=== PATIENT | female | born 1995 | race African-American/Black ===

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

== ENCOUNTER 2017-01-31 19:07 | Emergency (ER) | payer OTHER ==
[~2017-01-31] VITALS: Ht 165.1 cm; Wt 92.5 kg
[2017-01-31 19:13] VITALS: BP 112/69
[2017-01-31 19:26] LABS: BILIRUBIN NEGATIVE (NEGATIVE); BLOOD NEGATIVE (NEGATIVE); CLARITY SL CLOUDY (CLEAR); COLOR YELLOW (YELLOW); GLUCOSE NEGATIVE (NEGATIVE); KETONE NEGATIVE (NEGATIVE); LEUKO ESTERASE 2+ (NEGATIVE); NITRITE POSITIVE (NEGATIVE); PH 5.5 (5.0-9.0); UROBILINOGEN 0.2 E.U./dl (0.2-1.0)
[2017-01-31 19:32] LABS: BACTERIA 2+; WBC 51-100 wbc/hpf (0-5)
[2017-01-31 19:33] LABS: RBC 0-2 rbc/hpf (0-2)
[2017-01-31] MEDS ORDERED: PRENATAL VITAM1 EAC4 PO (19:36)
[2017-01-31] MEDS ORDERED: MACROBID100 M1 PO (19:36)
== END 2017-01-31 19:42 | disposition home or self-care (01) ==
LOC: ED 19:07
PROVIDERS: Physician Assistant
DX: O23.41 Unspecified infection of urinary tract in pregnancy, first trimester (principal); Z3A.01 Less than 8 weeks gestation of pregnancy

== ENCOUNTER 2017-03-29 19:39 | Emergency (ER) | payer OTHER ==
[~2017-03-29] VITALS: Ht 165.1 cm; Wt 89.8 kg
[~2017-03-29 19:39] MED LIST changes: +PRENATAL VITAM1 EAC4 PO
[2017-03-29 19:42] VITALS: BP 108/62
[2017-03-29 20:09] LABS: BASO % 0.1 % (0.0-1.0); EOS % 0.2 % (1.0-4.0); HEMATOCRIT 35.9 % (37.0-47.0); HEMOGLOBIN 12.5 g/dl (12.0-16.0); LYMPH # 1.6 10*3/uL (1.3-4.4); LYMPH % 19.6 % (27.0-41.0); MEAN CELL VOLUME 86.9 fl (81.0-99.0); MEAN CORPUSCULAR HGB 30.3 pg (27.0-31.0); MEAN CORPUSCULAR HGB CONC 34.8 g/dl (33.0-37.0); MEAN PLATELET VOLUME 10.4 fl (9.6-12.3); MONO # 0.5 10*3/uL (0.1-1.0); MONO % 5.5 % (3.0-9.0); NEUT # 6.2 10*3/uL (2.3-7.9); NEUT % 74.4 % (47.0-73.0); PLATELET COUNT AUTOMATED 225 10*3/uL (130-400); RED BLOOD COUNT 4.13 10*6/uL (4.10-5.10); RED CELL DISTRI WIDTH 13.7 % (0-14.5); WHITE BLOOD COUNT 8.4 10*3/uL (4.8-10.8)
[2017-03-29 20:24] LABS: ALBUMIN 3.4 gm/dl (3.1-4.5); ALKALINE PHOSPHATASE 49 U/L (45-117); BUN 4 mg/dl (7-24); CHLORIDE 107 mmol/L (98-107); CREATININE 0.51 mg/dL (0.55-1.02); LIPASE 136 U/L (73-393); POTASSIUM 3.9 mmol/L (3.5-5.1); SGOT/AST 12 IU/L (3-35); SGPT/ALT 16 U/L (12-78); SODIUM 137 mmol/L (136-145); TOTAL PROTEIN 6.9 gm/dL (6.4-8.2)
[2017-03-29 20:27] LABS: BILIRUBIN NEGATIVE (NEGATIVE); BLOOD NEGATIVE (NEGATIVE); CLARITY SL CLOUDY (CLEAR); COLOR YELLOW (YELLOW); GLUCOSE NEGATIVE (NEGATIVE); KETONE 2+ (NEGATIVE); LEUKO ESTERASE NEGATIVE (NEGATIVE); NITRITE NEGATIVE (NEGATIVE); UROBILINOGEN 0.2 E.U./dl (0.2-1.0)
[2017-03-29 20:32] LABS: BACTERIA 1+
[2017-03-29 20:33] LABS: MUCOUS 2+; RBC 0-2 rbc/hpf (0-2)
== END 2017-03-29 21:53 | disposition home or self-care (01) ==
LOC: ED 19:39
PROVIDERS: Physician Assistant
DX: O99.611 Diseases of the digestive system complicating pregnancy, first trimester (principal); K52.9 Noninfective gastroenteritis and colitis, unspecified; Z3A.13 13 weeks gestation of pregnancy

== ENCOUNTER 2017-04-28 10:42 | Emergency (ER) | payer OTHER ==
[~2017-04-28] VITALS: Ht 165.1 cm; Wt 92.5 kg
[2017-04-28 10:49] VITALS: BP 91/59
[2017-04-28 11:09] LABS: BASO % 0.3 % (0.0-1.0); EOS # 0.1 10*3/uL (0.0-0.4); EOS % 0.7 % (1.0-4.0); HEMATOCRIT 35.5 % (37.0-47.0); HEMOGLOBIN 12.4 g/dl (12.0-16.0); LYMPH # 2.1 10*3/uL (1.3-4.4); MEAN CELL VOLUME 87.7 fl (81.0-99.0); MEAN CORPUSCULAR HGB 30.6 pg (27.0-31.0); MEAN CORPUSCULAR HGB CONC 34.9 g/dl (33.0-37.0); MEAN PLATELET VOLUME 10.7 fl (9.6-12.3); MONO # 0.5 10*3/uL (0.1-1.0); MONO % 6.8 % (3.0-9.0); NEUT # 4.8 10*3/uL (2.3-7.9); NEUT % 63.7 % (47.0-73.0); PLATELET COUNT AUTOMATED 219 10*3/uL (130-400); RED BLOOD COUNT 4.05 10*6/uL (4.10-5.10); RED CELL DISTRI WIDTH 13.2 % (0-14.5); WHITE BLOOD COUNT 7.5 10*3/uL (4.8-10.8)
[2017-04-28 11:24] LABS: ALKALINE PHOSPHATASE 46 U/L (45-117); BUN 4 mg/dl (7-24); CHLORIDE 107 mmol/L (98-107); CREATININE 0.44 mg/dL (0.55-1.02); POTASSIUM 3.9 mmol/L (3.5-5.1); SGOT/AST 8 IU/L (3-35); SGPT/ALT 13 U/L (12-78); SODIUM 138 mmol/L (136-145); TOTAL PROTEIN 6.8 gm/dL (6.4-8.2)
[2017-04-28 11:41] LABS: BILIRUBIN NEGATIVE (NEGATIVE); BLOOD NEGATIVE (NEGATIVE); CLARITY SL CLOUDY (CLEAR); COLOR YELLOW (YELLOW); GLUCOSE NEGATIVE (NEGATIVE); KETONE NEGATIVE (NEGATIVE); LEUKO ESTERASE TRACE (NEGATIVE); NITRITE NEGATIVE (NEGATIVE); SPECIFIC GRAVITY 1.015 (1.005-1.030); UROBILINOGEN 0.2 E.U./dl (0.2-1.0)
[2017-04-28 11:54] LABS: WBC 21-30 wbc/hpf (0-5)
[2017-04-28 11:55] LABS: BACTERIA 1+
[2017-04-28] MEDS ORDERED: DICLEGIS DR 101 EACH PO (12:00)
[2017-04-28] MEDS ORDERED: MACROBID100 M1 PO (12:00)
== END 2017-04-28 12:18 | disposition home or self-care (01) ==
LOC: ED 10:42
PROVIDERS: Nurse Practitioner Family
DX: O23.42 Unspecified infection of urinary tract in pregnancy, second trimester (principal); Z3A.17 17 weeks gestation of pregnancy

== ENCOUNTER 2017-06-26 18:32 | Emergency (ER) | payer OTHER ==
[~2017-06-26] VITALS: Ht 162.5 cm; Wt 88.9 kg
[~2017-06-26 18:32] MED LIST changes: +DICLEGIS DR 101 EACH PO
[2017-06-26] MEDS ORDERED: PRENATAL TABLE1 EACH PO (18:41)
[2017-06-26 20:10] VITALS: BP 107/63
[2017-06-26 20:35] LABS: BILIRUBIN NEGATIVE (NEGATIVE); BLOOD NEGATIVE (NEGATIVE); CLARITY SL CLOUDY (CLEAR); COLOR YELLOW (YELLOW); GLUCOSE NEGATIVE (NEGATIVE); KETONE NEGATIVE (NEGATIVE); LEUKO ESTERASE 1+ (NEGATIVE); NITRITE NEGATIVE (NEGATIVE); PH 6.5 (5.0-9.0); UROBILINOGEN 0.2 E.U./dl (0.2-1.0)
[2017-06-26 20:43] LABS: BACTERIA 3+; EPITHELIAL CELLS 16-20
[2017-06-26] MEDS ORDERED: MACROBID100 M1 PO (20:59)
== END 2017-06-26 21:03 | disposition home or self-care (01) ==
LOC: ED 18:32
PROVIDERS: Emergency Medicine Emergency Medical Services
DX: O9A.212 Injury, poisoning and certain other consequences of external causes complicating pregnancy, second trimester (principal); S70.12XA Contusion of left thigh, initial encounter; O23.42 Unspecified infection of urinary tract in pregnancy, second trimester; Z3A.25 25 weeks gestation of pregnancy; Z79.899 Other long term (current) drug therapy; V49.49XA Driver injured in collision with other motor vehicles in traffic accident, initial encounter; Y93.89 Activity, other specified; Y92.89 Other specified places as the place of occurrence of the external cause; Y99.8 Other external cause status

== ENCOUNTER 2017-07-06 15:25 | Emergency (ER) | payer OTHER ==
[~2017-07-06] VITALS: Ht 162.5 cm; Wt 93.9 kg
[~2017-07-06 15:25] MED LIST changes: +PRENATAL TABLE1 EACH PO
[2017-07-06 16:01] LABS: BASO % 0.3 % (0.0-1.0); EOS # 0.1 10*3/uL (0.0-0.4); EOS % 0.9 % (1.0-4.0); HEMATOCRIT 32.7 % (37.0-47.0); HEMOGLOBIN 11.3 g/dl (12.0-16.0); LYMPH # 1.7 10*3/uL (1.3-4.4); LYMPH % 25.1 % (27.0-41.0); MEAN CELL VOLUME 91.1 fl (81.0-99.0); MEAN CORPUSCULAR HGB 31.5 pg (27.0-31.0); MEAN CORPUSCULAR HGB CONC 34.6 g/dl (33.0-37.0); MEAN PLATELET VOLUME 11.2 fl (9.6-12.3); MONO # 0.7 10*3/uL (0.1-1.0); MONO % 9.9 % (3.0-9.0); NEUT # 4.3 10*3/uL (2.3-7.9); NEUT % 63.1 % (47.0-73.0); PLATELET COUNT AUTOMATED 202 10*3/uL (130-400); RED BLOOD COUNT 3.59 10*6/uL (4.10-5.10); RED CELL DISTRI WIDTH 12.7 % (0-14.5); WHITE BLOOD COUNT 6.8 10*3/uL (4.8-10.8)
[2017-07-06 16:02] LABS: BILIRUBIN NEGATIVE (NEGATIVE); BLOOD TRACE-INTACT (NEGATIVE); CLARITY SL CLOUDY (CLEAR); COLOR YELLOW (YELLOW); GLUCOSE NEGATIVE (NEGATIVE); KETONE TRACE (NEGATIVE); LEUKO ESTERASE NEGATIVE (NEGATIVE); NITRITE NEGATIVE (NEGATIVE); UROBILINOGEN 0.2 E.U./dl (0.2-1.0)
[2017-07-06 16:09] LABS: INTERNATIONAL NORM RATIO 0.9 (2.0-3.5)
[2017-07-06 16:09] LABS: BACTERIA 1+
[2017-07-06 16:11] LABS: EPITHELIAL CELLS 21-30
[2017-07-06 16:15] LABS: ALBUMIN 2.7 gm/dl (3.1-4.5); ALKALINE PHOSPHATASE 59 U/L (45-117); BUN 4 mg/dl (7-24); CHLORIDE 107 mmol/L (98-107); LIPASE 85 U/L (73-393); POTASSIUM 3.8 mmol/L (3.5-5.1); SGOT/AST 8 IU/L (3-35); SGPT/ALT 9 U/L (12-78); SODIUM 137 mmol/L (136-145); TOTAL PROTEIN 6.4 gm/dL (6.4-8.2)
[2017-07-06 17:13] VITALS: BP 110/62
== END 2017-07-06 17:10 | disposition short-term general hospital (02) ==
LOC: ED 15:25
PROVIDERS: Physician Assistant
DX: O26.891 Other specified pregnancy related conditions, first trimester (principal); R10.9 Unspecified abdominal pain; R42 Dizziness and giddiness; R51 Headache; Z79.899 Other long term (current) drug therapy; Z3A.01 Less than 8 weeks gestation of pregnancy

== ENCOUNTER 2017-08-19 16:46 | Emergency (ER) | payer OTHER ==
[~2017-08-19] VITALS: Ht 162.5 cm; Wt 98.0 kg
[2017-08-19 17:47] LABS: BILIRUBIN NEGATIVE (NEGATIVE); BLOOD NEGATIVE (NEGATIVE); CLARITY SL CLOUDY (CLEAR); COLOR YELLOW (YELLOW); GLUCOSE NEGATIVE (NEGATIVE); KETONE TRACE (NEGATIVE); LEUKO ESTERASE TRACE (NEGATIVE); NITRITE POSITIVE (NEGATIVE); SPECIFIC GRAVITY 1.025 (1.005-1.030); UROBILINOGEN 0.2 E.U./dl (0.2-1.0)
[2017-08-19 17:48] VITALS: BP 105/63
[2017-08-19 17:58] LABS: BACTERIA 1+; MUCOUS TRACE; RBC 0-2 rbc/hpf (0-2)
== END 2017-08-19 17:55 | disposition short-term general hospital (02) ==
LOC: ED 16:46
PROVIDERS: Emergency Medicine
DX: O26.893 Other specified pregnancy related conditions, third trimester (principal); R10.9 Unspecified abdominal pain; M54.9 Dorsalgia, unspecified; Z79.899 Other long term (current) drug therapy; Z3A.34 34 weeks gestation of pregnancy

== ENCOUNTER → 2017-09-03 | Outpatient (CLI) | payer OTHER | END | disposition home or self-care (01) | LOC: US 16:55 | DX: N23 Unspecified renal colic (principal) ==

== ENCOUNTER 2017-09-20 17:49 | Emergency (ER) | payer OTHER ==
[~2017-09-20] VITALS: Ht 165.1 cm; Wt 94.8 kg
[2017-09-20 17:49] VITALS: BP 109/64
== END 2017-09-20 18:18 | disposition left against medical advice (07) ==
LOC: ED 17:49
DX: Z34.93 Encounter for supervision of normal pregnancy, unspecified, third trimester (principal); Z79.899 Other long term (current) drug therapy

== ENCOUNTER 2017-09-25 20:20 | Emergency (ER) | payer OTHER ==
[~2017-09-25] VITALS: Wt 94.8 kg
[2017-09-25 20:24] VITALS: BP 91/48
== END 2017-09-25 20:54 | disposition short-term general hospital (02) ==
LOC: ED 20:20
DX: O23.593 Infection of other part of genital tract in pregnancy, third trimester (principal); N89.8 Other specified noninflammatory disorders of vagina; Z3A.38 38 weeks gestation of pregnancy

== ENCOUNTER 2017-10-02 22:25 | Emergency (ER) | payer OTHER ==
[~2017-10-02] VITALS: Ht 165.1 cm; Wt 89.4 kg
--- NOTE | ~2017-10-02 | EKG ---
[place], [place] ELECTROCARDIOGRAM REPORT NAME: DESEAN MANDUJANO UNIT #: [id number] ROOM: DOCTOR: SHAD FISCHER MD BIRTHDATE: [birth year] DOS: 10/02/2017 TIME: 2300 hours. FINDINGS: 1. Normal sinus rhythm with 63 beats per minute. 2. The tracing is normal. 3. No previous tracing is available for comparison. SHAD FISCHER MD CM:EKGRPT:ELECTROCARDIOGRAM REPORT [id number] SHAD FISCHER MD
[2017-10-02 22:59] LABS: ACT PARTIAL THROMBO TIME 26.5 SECONDS (20.8-31.5); INTERNATIONAL NORM RATIO 0.9 (2.0-3.5)
[2017-10-02 23:06] LABS: ALBUMIN 2.5 gm/dl (3.1-4.5); ALKALINE PHOSPHATASE 98 U/L (45-117); BUN 7 mg/dl (7-24); CHLORIDE 110 mmol/L (98-107); CREATININE 0.64 mg/dL (0.55-1.02); SGOT/AST 14 IU/L (3-35); SGPT/ALT 15 U/L (12-78); SODIUM 141 mmol/L (136-145); TOTAL PROTEIN 6.4 gm/dL (6.4-8.2)
[2017-10-02 23:08] LABS: TROPONIN I < 0.015 ng/ml (<0.045)
[2017-10-02 23:09] LABS: BASO % 0.3 % (0.0-1.0); EOS # 0.1 10*3/uL (0.0-0.4); EOS % 1.2 % (1.0-4.0); HEMATOCRIT 30.8 % (37.0-47.0); LYMPH # 1.6 10*3/uL (1.3-4.4); LYMPH % 21.8 % (27.0-41.0); MEAN CORPUSCULAR HGB 28.9 pg (27.0-31.0); MEAN CORPUSCULAR HGB CONC 32.5 g/dl (33.0-37.0); MEAN PLATELET VOLUME 11.3 fl (9.6-12.3); MONO # 0.7 10*3/uL (0.1-1.0); MONO % 8.8 % (3.0-9.0); NEUT # 4.9 10*3/uL (2.3-7.9); NEUT % 66.7 % (47.0-73.0); PLATELET COUNT AUTOMATED 264 10*3/uL (130-400); RED BLOOD COUNT 3.46 10*6/uL (4.10-5.10); RED CELL DISTRI WIDTH 13.1 % (0-14.5); WHITE BLOOD COUNT 7.4 10*3/uL (4.8-10.8)
[2017-10-02 23:23] LABS: BILIRUBIN NEGATIVE (NEGATIVE); BLOOD 3+ (NEGATIVE); CLARITY SL CLOUDY (CLEAR); COLOR YELLOW (YELLOW); GLUCOSE NEGATIVE (NEGATIVE); KETONE NEGATIVE (NEGATIVE); LEUKO ESTERASE 3+ (NEGATIVE); NITRITE NEGATIVE (NEGATIVE); UROBILINOGEN 0.2 E.U./dl (0.2-1.0)
[2017-10-02 23:30] LABS: WBC 41-50 wbc/hpf (0-5)
[2017-10-02 23:31] LABS: BACTERIA 1+; RBC 31-40 rbc/hpf (0-2)
[2017-10-03 00:13] VITALS: BP 124/83
== END 2017-10-03 01:21 | disposition home or self-care (01) ==
LOC: ED 22:25
PROVIDERS: Student in an Organized Health Care Education/Training Program
DX: O90.89 Other complications of the puerperium, not elsewhere classified (principal); R51 Headache; Z79.899 Other long term (current) drug therapy

== ENCOUNTER 2017-10-14 15:47 | Emergency (ER) | payer OTHER ==
[~2017-10-14] VITALS: Ht 165.1 cm; Wt 88.5 kg
[2017-10-14 16:22] LABS: BASO % 0.8 % (0.0-1.0); EOS % 0.8 % (1.0-4.0); HEMATOCRIT 33.7 % (37.0-47.0); HEMOGLOBIN 10.8 g/dl (12.0-16.0); LYMPH # 1.7 10*3/uL (1.3-4.4); LYMPH % 44.3 % (27.0-41.0); MEAN CELL VOLUME 89.4 fl (81.0-99.0); MEAN CORPUSCULAR HGB 28.6 pg (27.0-31.0); MEAN PLATELET VOLUME 10.9 fl (9.6-12.3); MONO # 0.4 10*3/uL (0.1-1.0); MONO % 9.3 % (3.0-9.0); NEUT # 1.7 10*3/uL (2.3-7.9); NEUT % 44.5 % (47.0-73.0); PLATELET COUNT AUTOMATED 256 10*3/uL (130-400); RED BLOOD COUNT 3.77 10*6/uL (4.10-5.10); RED CELL DISTRI WIDTH 13.6 % (0-14.5); WHITE BLOOD COUNT 3.9 10*3/uL (4.8-10.8)
[2017-10-14 16:36] LABS: ALBUMIN 3.2 gm/dl (3.1-4.5); ALKALINE PHOSPHATASE 78 U/L (45-117); BUN 8 mg/dl (7-24); CHLORIDE 109 mmol/L (98-107); CREATININE 0.58 mg/dL (0.55-1.02); POTASSIUM 4.1 mmol/L (3.5-5.1); SGOT/AST 14 IU/L (3-35); SGPT/ALT 22 U/L (12-78); SODIUM 140 mmol/L (136-145); TOTAL PROTEIN 6.5 gm/dL (6.4-8.2)
[2017-10-14] MEDS ORDERED: ZITHROMAX250 MG PO (17:20)
[2017-10-14] MEDS ORDERED: MEDROL DOSEPAK4 MG PO (17:20)
[2017-10-14 17:25] VITALS: BP 107/63
== END 2017-10-14 17:31 | disposition home or self-care (01) ==
LOC: ED 15:47
PROVIDERS: Physician Assistant
DX: J40 Bronchitis, not specified as acute or chronic (principal)

== ENCOUNTER → 2018-03-19 | Outpatient (CLI) | payer OTHER ==
[~2018-03-19] MED LIST changes: +MEDROL DOSEPAK4 MG PO; +ZITHROMAX250 MG PO
== END ==
LOC: US 07:16
DX: K90.49 Malabsorption due to intolerance, not elsewhere classified (principal)

== ENCOUNTER 2018-05-14 16:25 | Emergency (ER) | payer OTHER ==
[~2018-05-14] VITALS: Ht 165.1 cm; Wt 107.0 kg
[2018-05-14 16:33] VITALS: BP 132/72
[2018-05-14] MEDS ORDERED: CEPHALEXIN500 M1 PO (16:36)
== END 2018-05-14 16:45 | disposition home or self-care (01) ==
LOC: ED 16:25
DX: K08.89 Other specified disorders of teeth and supporting structures (principal); L08.9 Local infection of the skin and subcutaneous tissue, unspecified

== ENCOUNTER 2019-01-29 | Emergency (ER) | payer OTHER ==
[~2019-01-29] VITALS: Ht 165.1 cm; Wt 82.6 kg
[~2019-01-29] MED LIST changes: +CEPHALEXIN500 M1 PO
[2019-01-29 00:02] VITALS: BP 120/62
[2019-01-29 00:41] LABS: BILIRUBIN NEGATIVE (NEGATIVE); BLOOD NEGATIVE (NEGATIVE); CLARITY SL CLOUDY (CLEAR); COLOR YELLOW (YELLOW); GLUCOSE NEGATIVE (NEGATIVE); KETONE NEGATIVE (NEGATIVE); LEUKO ESTERASE 1+ (NEGATIVE); NITRITE NEGATIVE (NEGATIVE); SPECIFIC GRAVITY >= 1.030 (1.005-1.030)
[2019-01-29 00:46] LABS: EPITHELIAL CELLS 15-20
[2019-01-29 00:48] LABS: BACTERIA TRACE; RBC 31-40 rbc/hpf (0-2); WBC 41-50 wbc/hpf (0-5)
[2019-01-29] MEDS ORDERED: MACROBID100 M1 PO (00:54)
== END 2019-01-29 01:28 | disposition home or self-care (01) ==
LOC: ED
PROVIDERS: Nurse Practitioner Family
DX: N39.0 Urinary tract infection, site not specified (principal); Z20.2 Contact with and (suspected) exposure to infections with a predominantly sexual mode of transmission; Z79.2 Long term (current) use of antibiotics

== ENCOUNTER 2019-04-14 12:12 | Emergency (ER) | payer OTHER ==
[~2019-04-14] VITALS: Wt 108.4 kg
[2019-04-14 12:13] VITALS: BP 102/39
[2019-04-14 13:03] LABS: BILIRUBIN NEGATIVE (NEGATIVE); BLOOD 1+ (NEGATIVE); CLARITY CLOUDY (CLEAR); COLOR YELLOW (YELLOW); GLUCOSE NEGATIVE (NEGATIVE); KETONE TRACE (NEGATIVE); LEUKO ESTERASE 1+ (NEGATIVE); NITRITE NEGATIVE (NEGATIVE); PH 5.5 (5.0-9.0); SPECIFIC GRAVITY >= 1.030 (1.005-1.030); UROBILINOGEN 0.2 E.U./dl (0.2-1.0)
[2019-04-14 13:22] LABS: BACTERIA 2+; EPITHELIAL CELLS 15-20; MUCOUS 2+; WBC 21-30 wbc/hpf (0-5)
[2019-04-14] MEDS ORDERED: PRENATAL TABLE1 EAC2 PO (13:47)
[2019-04-14] MEDS ORDERED: CEPHALEXIN500 M1 PO (13:47)
== END 2019-04-14 13:58 | disposition home or self-care (01) ==
LOC: ED 12:12
PROVIDERS: Nurse Practitioner Family
DX: O23.91 Unspecified genitourinary tract infection in pregnancy, first trimester (principal); O98.311 Other infections with a predominantly sexual mode of transmission complicating pregnancy, first trimester; A59.9 Trichomoniasis, unspecified; O99.611 Diseases of the digestive system complicating pregnancy, first trimester; A08.4 Viral intestinal infection, unspecified; Z3A.00 Weeks of gestation of pregnancy not specified; Z79.2 Long term (current) use of antibiotics

== ENCOUNTER 2019-05-15 12:20 | Emergency (ER) | payer OTHER ==
[~2019-05-15] VITALS: Ht 165.1 cm; Wt 102.5 kg
[~2019-05-15 12:20] MED LIST changes: +PRENATAL TABLE1 EAC2 PO
[2019-05-15 12:29] VITALS: BP 95/67
[2019-05-15 13:36] LABS: BASO % 0.2 % (0.0-1.0); EOS % 0.4 % (1.0-4.0); HEMATOCRIT 35.9 % (37.0-47.0); HEMOGLOBIN 12.2 g/dl (12.0-16.0); LYMPH # 1.4 10*3/uL (1.3-4.4); LYMPH % 30.4 % (27.0-41.0); MEAN CELL VOLUME 90.2 fl (81.0-99.0); MEAN CORPUSCULAR HGB 30.7 pg (27.0-31.0); MEAN PLATELET VOLUME 10.8 fl (9.6-12.3); MONO # 0.5 10*3/uL (0.1-1.0); MONO % 10.4 % (3.0-9.0); NEUT # 2.8 10*3/uL (2.3-7.9); NEUT % 58.4 % (47.0-73.0); PLATELET COUNT AUTOMATED 213 10*3/uL (130-400); RED BLOOD COUNT 3.98 10*6/uL (4.10-5.10); RED CELL DISTRI WIDTH 13.2 % (0-14.5); WHITE BLOOD COUNT 4.7 10*3/uL (4.8-10.8)
[2019-05-15 13:51] LABS: ALBUMIN 3.2 gm/dl (3.1-4.5); ALKALINE PHOSPHATASE 46 U/L (45-117); BUN 4 mg/dl (7-24); CHLORIDE 107 mmol/L (98-107); CREATININE 0.45 mg/dL (0.55-1.02); LIPASE 58 U/L (73-393); POTASSIUM 3.6 mmol/L (3.5-5.1); SGOT/AST 11 IU/L (3-35); SGPT/ALT 13 U/L (12-78); SODIUM 138 mmol/L (136-145); TOTAL PROTEIN 6.5 gm/dL (6.4-8.2)
[2019-05-15 16:51] LABS: BILIRUBIN NEGATIVE (NEGATIVE); CLARITY CLEAR (CLEAR); COLOR YELLOW (YELLOW); GLUCOSE NEGATIVE (NEGATIVE); KETONE NEGATIVE (NEGATIVE); SPECIFIC GRAVITY 1.005 (1.005-1.030)
[2019-05-15 16:52] LABS: BLOOD NEGATIVE (NEGATIVE); LEUKO ESTERASE NEGATIVE (NEGATIVE); NITRITE POSITIVE (NEGATIVE); UROBILINOGEN 0.2 E.U./dl (0.2-1.0)
[2019-05-15 16:56] LABS: BACTERIA 1+; WBC 0-2 wbc/hpf (0-5)
[2019-05-15] MEDS ORDERED: CEPHALEXIN500 M1 PO (17:12)
== END 2019-05-15 17:32 | disposition home or self-care (01) ==
LOC: ED 12:20
PROVIDERS: Physician Assistant
DX: O23.91 Unspecified genitourinary tract infection in pregnancy, first trimester (principal); B96.89 Other specified bacterial agents as the cause of diseases classified elsewhere; Z3A.11 11 weeks gestation of pregnancy; Z79.2 Long term (current) use of antibiotics; Z79.899 Other long term (current) drug therapy

== ENCOUNTER 2024-10-02 23:33 | Emergency (ER) | payer OTHER ==
[~2024-10-02] VITALS: Ht 162.5 cm; Wt 117.9 kg
[2024-10-02 23:46] VITALS: BP 121/67
[2024-10-02] MEDS ORDERED: GABAPENTIN400 MG PO (23:47)
[2024-10-03] MEDS ORDERED: MELOXICAM7.5 MG PO (03:40)
[2024-10-03] MEDS ORDERED: traMADol Hydrochloride 50 MG TAB PO ONE (03:45)
== END 2024-10-03 03:55 | disposition home or self-care (01) ==
LOC: ED 23:33
DX: S96.911A Strain of unspecified muscle and tendon at ankle and foot level, right foot, initial encounter (principal); S90.31XA Contusion of right foot, initial encounter; Z79.899 Other long term (current) drug therapy; Z98.890 Other specified postprocedural states; W01.0XXA Fall on same level from slipping, tripping and stumbling without subsequent striking against object, initial encounter; Y93.89 Activity, other specified; Y92.89 Other specified places as the place of occurrence of the external cause; Y99.8 Other external cause status

== ENCOUNTER 2024-12-17 22:21 | Emergency (ER) | payer OTHER ==
[~2024-12-17] VITALS: Ht 165.1 cm; Wt 117.9 kg
[~2024-12-17 22:21] MED LIST changes: +GABAPENTIN400 MG PO; +MELOXICAM7.5 MG PO
[2024-12-17 22:30] VITALS: BP 108/68
[2024-12-17] MEDS ORDERED: Bacitracin Zinc 14 GM TUBE T ONE (23:30)
== END 2024-12-17 23:44 | disposition home or self-care (01) ==
LOC: ED 22:21
DX: S81.811A Laceration without foreign body, right lower leg, initial encounter (principal); W45.8XXA Other foreign body or object entering through skin, initial encounter; Y93.89 Activity, other specified; Y92.89 Other specified places as the place of occurrence of the external cause; Y99.8 Other external cause status

== ENCOUNTER 2024-12-19 14:34 | Emergency (ER) | payer OTHER ==
[~2024-12-19] VITALS: Ht 165.1 cm; Wt 117.9 kg
[2024-12-19 15:05] VITALS: BP 107/50
== END 2024-12-19 15:42 | disposition home or self-care (01) ==
LOC: ED 14:34
DX: S81.811D Laceration without foreign body, right lower leg, subsequent encounter (principal); Z48.01 Encounter for change or removal of surgical wound dressing; Z79.899 Other long term (current) drug therapy; X58.XXXD Exposure to other specified factors, subsequent encounter

== ENCOUNTER 2025-01-29 13:27 | Emergency (ER) | payer SELFPAY ==
[~2025-01-29] VITALS: Ht 165.1 cm; Wt 117.9 kg
[2025-01-29 13:51] VITALS: BP 113/70
[2025-01-29] MEDS ORDERED: GABAPENTIN400 MG PO (13:52)
[2025-01-29] MEDS ORDERED: Acetaminophen/Oxycodone 5 MG/325 MG TABLET PO ONE (14:45)
[2025-01-29] MEDS ORDERED: NAPROSYN500 MG PO (18:11)
== END 2025-01-29 18:16 | disposition home or self-care (01) ==
LOC: ED 13:27
DX: S93.602A Unspecified sprain of left foot, initial encounter (principal); S90.32XA Contusion of left foot, initial encounter; Z87.440 Personal history of urinary (tract) infections; W10.9XXA Fall (on) (from) unspecified stairs and steps, initial encounter; Y93.89 Activity, other specified; Y92.89 Other specified places as the place of occurrence of the external cause; Y99.8 Other external cause status

== ENCOUNTER 2025-02-10 16:38 | Emergency (ER) | payer SELFPAY ==
[~2025-02-10] VITALS: Ht 165.1 cm; Wt 72.6 kg
[2025-02-10 16:50] VITALS: BP 101/71
[2025-02-10] MEDS ORDERED: Acetaminophen/Oxycodone Hydr 7.5 MG/325 MG TABLET PO ONE (18:00)
[2025-02-10] MEDS ORDERED: Amoxicillin/Clavulanate Pota 875 MG TAB PO ONE (20:00)
[2025-02-10] MEDS ORDERED: HYDROCODONE-AC1 EAC1 PO (20:03)
[2025-02-10] MEDS ORDERED: AMOX-CLAV 875-1 EACH PO (20:03)
[2025-02-10] MEDS ORDERED: Acetaminophen/Hydrocodone 5 MG/325 MG TABLET PO ONE (20:05)
== END 2025-02-10 20:13 | disposition home or self-care (01) ==
LOC: ED 16:38
DX: S93.602A Unspecified sprain of left foot, initial encounter (principal); L02.413 Cutaneous abscess of right upper limb; W10.9XXA Fall (on) (from) unspecified stairs and steps, initial encounter; Y93.89 Activity, other specified; Y92.89 Other specified places as the place of occurrence of the external cause; Y99.8 Other external cause status

== ENCOUNTER 2025-02-12 18:42 | Emergency (ER) | payer SELFPAY ==
[~2025-02-12] VITALS: Ht 165.1 cm; Wt 117.9 kg
[~2025-02-12 18:42] MED LIST changes: +AMOX-CLAV 875-1 EACH PO; +HYDROCODONE-AC1 EAC1 PO
[2025-02-12 18:51] VITALS: BP 110/68
[2025-02-12] MEDS ORDERED: Sulfamethoxazole/Trimethopri 1 TAB TAB PO ONE (19:30)
[2025-02-12] MEDS ORDERED: SEPTDS PO (19:34)
== END 2025-02-12 19:40 | disposition home or self-care (01) ==
LOC: ED 18:42
DX: L02.413 Cutaneous abscess of right upper limb (principal)

== ENCOUNTER 2025-03-23 18:23 | Emergency (ER) | payer OTHER ==
[~2025-03-23] VITALS: Wt 117.9 kg
[~2025-03-23 18:23] MED LIST changes: +SEPTDS PO
[2025-03-23 18:40] VITALS: BP 120/78
[2025-03-23] MEDS ORDERED: CLINDAMYCIN HC300 MG PO (20:00)
[2025-03-23] MEDS ORDERED: ERYTHROMYCIN OPH1 GM OPH (20:00)
[2025-03-23] MEDS ORDERED: CLINDAMYCIN HCL 300 MG CAPSULE PO ONE (20:05)
[2025-03-23] MEDS ORDERED: ERYTHROMYCIN 1 GM TUBE OPH ONE (20:05)
== END 2025-03-23 20:06 | disposition home or self-care (01) ==
LOC: ED 18:23
DX: H00.011 Hordeolum externum right upper eyelid (principal); H00.012 Hordeolum externum right lower eyelid; Z79.899 Other long term (current) drug therapy